=== PATIENT | male | born 1965 | race African-American/Black ===

== ENCOUNTER 2017-09-01 05:27 | Emergency (ER) | payer SELFPAY ==
[~2017-09-01] VITALS: Ht 167.6 cm; Wt 73.0 kg
[2017-09-01] MEDS ORDERED: ONDANSETRON HCL 4MG/2ML VIAL IV ONE (07:00)
[2017-09-01 07:24] LABS: BASOPHILS % 0.2 % (0.0-2.0); EOSINOPHILS % 0.2 % (0.0-5.0); HEMATOCRIT. 42.3 % (42.0-52.0); HEMOGLOBIN. 14.4 g/dL (14.0-18.0); LYMPHOCYTES % 10.5 % (20.0-50.0); MEAN CORPUSCULAR HEMOGLOBIN 30.8 pg (28.0-32.0); MEAN CORPUSCULAR VOLUME 90.1 fL (80.0-94.0); MEAN PLATELET VOLUME 9.4 fl (7.4-10.4); MONOCYTES % 4.8 % (2.0-8.0); NEUTROPHILS % 84.3 % (40.0-76.0); PLATELET 164 x1000/uL (130-400); RED BLOOD CELL COUNT 4.69 mill/uL (4.7-6.1); RED CELL DISTRIBUTION WIDTH 15.2 % (11.6-14.6)
[2017-09-01 07:31] LABS: CHLORIDE 105 mEq/L (98-107)
[2017-09-01] MEDS ORDERED: KETOROLAC 30MG/ML VIAL IV ONE (08:15)
[2017-09-01] MEDS ORDERED: PROCHLORPERAZINE MALEATE 10MG TABLET PO ONE (08:45)
[2017-09-01 08:46] LABS: KETONES URINE NEGATIVE (NEGATIVE); LEUKOCYTE ESTERASE URINE NEGATIVE (NEGATIVE); NITRITE URINE NEGATIVE (NEGATIVE); OCCULT BLOOD URINE NEGATIVE (NEGATIVE); PROTEIN URINE NEGATIVE (NEGATIVE); SPECIFIC GRAVITY URINE 1.016 (1.005-1.030); UROBILINOGEN URINE 0.2 E.U./dL (0.2-1.0)
[2017-09-01 08:47] LABS: CLARITY URINE CLEAR (CLEAR); COLOR URINE YELLOW (YELLOW)
[2017-09-01 11:53] VITALS: BP 134/89
== END 2017-09-01 11:57 | disposition home or self-care (01) ==
LOC: ER 05:38
DX: R42 Dizziness and giddiness (principal); I10 Essential (primary) hypertension; R10.9 Unspecified abdominal pain; R19.7 Diarrhea, unspecified
CPT/HCPCS: 36415; 76700; 80053; 81003; 83690; 85025; 96374; 96375; 99285; J1885; J2405; Z7610; Q0164

== ENCOUNTER 2020-07-12 12:08 | Emergency (ER) | payer SELFPAY ==
[~2020-07-12] VITALS: Ht 172.7 cm; Wt 74.0 kg
[2020-07-12] MEDS ORDERED: ONDANSETRON HCL 4MG/2ML INJ IV STA ×2 (12:42→16:35)
[2020-07-12] MEDS ORDERED: SODIUM CHLORIDE 0.9% 1,000 ML IV ONE ×2 (12:45→13:15)
[2020-07-12] MEDS ORDERED: KETOROLAC 30MG/ML VIAL IV STA (13:12)
[2020-07-12 13:19] LABS: BASOPHILS % 0.3 % (0.0-2.0); EOSINOPHILS % 0.1 % (0.0-5.0); HEMATOCRIT. 47.4 % (42.0-52.0); HEMOGLOBIN. 15.5 g/dL (14.0-18.0); LYMPHOCYTES % 9.1 % (20.0-50.0); MEAN CORPUSCULAR HEMOGLOBIN 30.1 pg (28.0-32.0); MEAN CORPUSCULAR VOLUME 91.9 fL (80.0-94.0); MONOCYTES % 2.6 % (2.0-8.0); NEUTROPHILS % 87.9 % (40.0-76.0); RED BLOOD CELL COUNT 5.15 mill/uL (4.7-6.1); RED CELL DISTRIBUTION WIDTH 15.8 % (11.6-14.6)
[2020-07-12 13:28] LABS: CHLORIDE 106 mEq/L (98-107)
[2020-07-12 13:53] LABS: PLATELET ESTIMATE NORMAL
[2020-07-12 13:54] LABS: PLATELET 178 x1000/uL (130-400)
[2020-07-12 14:43] LABS: CLARITY URINE CLEAR (CLEAR); COLOR URINE YELLOW (YELLOW); KETONES URINE 1+ (NEGATIVE); LEUKOCYTE ESTERASE URINE NEGATIVE (NEGATIVE); NITRITE URINE NEGATIVE (NEGATIVE); OCCULT BLOOD URINE NEGATIVE (NEGATIVE); PROTEIN URINE NEGATIVE (NEGATIVE); SPECIFIC GRAVITY URINE 1.017 (1.005-1.030); UROBILINOGEN URINE 0.2 E.U./dL (0.2-1.0)
[2020-07-12] MEDS ORDERED: MECL-115 PO (15:51)
[2020-07-12] MEDS ORDERED: ONDA4TAB5 MT (15:52)
[2020-07-12] MEDS ORDERED: MORPHINE SULFATE 4 MG/ML CPJ (NOT FOR IM USE) IV STA (16:35)
[2020-07-12 16:38] VITALS: BP 148/115
== END 2020-07-12 17:05 | disposition home or self-care (01) ==
LOC: ER 12:27
DX: R42 Dizziness and giddiness (principal); R10.33 Periumbilical pain; I10 Essential (primary) hypertension; R53.1 Weakness
CPT/HCPCS: 36415; 74176; 80053; 81003; 85025; 93005; 96361; 96374; 96375; 96376; 99285; J1885; J2270; J2405; J7030; Z7610